=== PATIENT | female | born 1955 | race Caucasian/White ===

== ENCOUNTER → 2017-06-29 | Outpatient (CLI) | payer BC | LOC: MC.RAD 10:14 | DX: Z12.31 Encounter for screening mammogram for malignant neoplasm of breast (principal) ==

== ENCOUNTER 2017-08-27 10:00 | Outpatient (RCR) | payer BC | END 2017-08-30 12:49 | disposition home or self-care (01) | LOC: MKS.ESL.PT 10:00 | DX: M54.41 Lumbago with sciatica, right side (principal) ==

== ENCOUNTER → 2017-10-07 | Outpatient (CLI) | payer BC ==
[~2017-10-07] VITALS: Ht 162.6 cm; Wt 89.5 kg
[~2017-10-07] MED LIST: DIABETA 2.5MG2.5 MG PO; GLUCOPHAGE1000 MG PO; HYZAAR 25 MG-101 TAB PO; LEVOXYL0.125 MG PO; NATURE'S BLEND500 M1 PO; PRENATAL PO; VITAMIN D 50,1.25 MG PO
[2017-10-07 09:10] VITALS: BP 204/90; PULSE 93
[2017-10-07 10:15] VITALS: BP 191/86; PULSE 98
== END ==
LOC: COL.RAD 08:55
DX: M51.26 Other intervertebral disc displacement, lumbar region (principal)
CPT/HCPCS: J3301

== ENCOUNTER 2019-03-23 15:40 | Inpatient (IN) | payer MEDICARE, BC ==
[~2019-03-23] VITALS: Ht 162.6 cm; Wt 90.4 kg
--- NOTE | 2019-03-23 16:13 | NUR ---
Patient arrived to room, was independently up to restroom. Family is at bedside.
[2019-03-23 16:34] VITALS: BP 150/71; PULSE 83; TEMP 98.5
[2019-03-23] MEDS ORDERED: LEVAQUIN 750MG750 M1 PO (16:50)
[2019-03-23 18:48] LABS: CALCIUM 8.4 mg/dL (8.4-10.2); CREATININE, serum 0.41 (0.52-1.25)
[2019-03-23 18:52] LABS: POTASSIUM 2.9 mmol/L (3.4-5.0)
--- NOTE | 2019-03-23 19:28 | NUR ---
Pt admitted from home secondary to hyponatremia and increased weakness. Pt requires assistx1 fromtransfers from bed and stand-by assist with 4ww with all ambulation. IV inserted into Pt's right hand on first attempt with moderate difficulty and blood return noted. Pt is A&Ox4 and is able to make wants and needs known. Spouse is by bedside and is very supportive of Pt and participated in assessment. Pt has been up to void x3 since admission with yellow clear urine reported. Pt has call light within reach and beverages on the bedside tray. Pt denies pain at this time but reports that she has chronic pain in her back and at this time she is simply uncomfortable. Pillows placed under her knees and behind her head which Pt reports is helpful. Will continue to monitor.
[2019-03-23 20:00] VITALS: BP 127/51; PULSE 64; TEMP 97.6
[2019-03-23] MEDS ORDERED: COZAAR100 MG PO (20:03)
[2019-03-23] MEDS ORDERED: NORVASC 5MG5 MG/TAB PO (20:03)
[2019-03-23 22:04] LABS: MUCOUS Present /lpf; PH 6 (5-8); URINE APPEARANCE Cloudy; URINE BACTERIA Rare /hpf; URINE BILIRUBIN Negative (NEGATIVE); URINE BLOOD Negative (NEGATIVE); URINE COLOR Yellow; URINE GLUCOSE Negative (NEGATIVE); URINE KETONE 1+ (NEGATIVE); URINE LEUKOCYTE ESTERASE 1+ (NEGATIVE); URINE NITRATE Negative (NEGATIVE); URINE PROTEIN(semi-quant) Negative (NEGATIVE); URINE RBC 0-2 /hpf; URINE UROBILINOGEN Negative (NEGATIVE)
[2019-03-23 22:12] LABS: COLLECTION METHOD CLEAN CATCH
[2019-03-24] VITALS: BP 149/56; PULSE 75; TEMP 97.5
[2019-03-24 04:15] LABS: HEMOGLOBIN 13.3 g/dl (12.5-16.0); MEAN CELL VOLUME 82 fl (80.0-100.0); MEAN CORPUSCULAR HEMOGLOBIN 29 pg (27.0-31.0); MEAN CORPUSCULAR HGB CONC 35 g/dl (33.0-37.0); MEAN PLATELET VOLUME 9.4 fl (7.4-10.4); PLATELET COUNT 284 K/mm3 (130-400); RED BLOOD COUNT 4.62 M/mm3 (4.10-5.30); REDCELL DISTRIBUTION WIDTH-CV 12.4 % (11.5-14.5)
[2019-03-24 04:25] LABS: ALBUMIN 3.9 gm/dL (3.5-5.0); BILIRUBIN,TOTAL 0.3 mg/dL (0.0-1.0); CALCIUM 8.4 mg/dL (8.4-10.2); CREATININE, serum 0.42 (0.52-1.25); MAGNESIUM 1.6 mg/dL (1.6-2.3); POTASSIUM 3.3 mmol/L (3.4-5.0); TOTAL PROTEIN 6.7 gm/dL (6.4-8.2)
--- NOTE | 2019-03-24 04:33 | NUR ---
Patient up to the bathroom very frequently throughout the shift. Longest time between bathroom trips was about 2 hours, otherwise, it was every 20 minutes to an hour. Bladder scanned and no residual noted. Hat added to determine how much patient is voiding at a time. Potassium, magnesium, and normal saline has run this shift. Potassium replacement protocol in progress. Magnesium replaced and new level noted to be 1.6. AIDA Osman, ordered another 4mg of Magnesium IV. Potassium running a little slower d/t patient complaining of burning to left hand. UA, stool sample, and respiratory virus panel collected and sent to lab. Will continue to monitor.
[2019-03-24 04:52] VITALS: BP 131/55; PULSE 83; TEMP 97.5
[2019-03-24 04:57] LABS: BAND 8 % (0-10); LYMPHOCYTE 39 % (20.0-51.0); NEUTROPHILS 41 % (42.0-75.2); PLATELET ESTIMATE NORMAL (NORMAL)
[2019-03-24 07:19] VITALS: BP 124/51; PULSE 80; TEMP 98
--- NOTE | 2019-03-24 10:24 | NUR ---
Initial visit; Patient thanked [employer] for looking in on her and offering God's blessings.
--- NOTE | 2019-03-24 10:48 | NUR ---
Pt is resting peacefully in bed with her spouse at her side. Pt has been up to void aprox 4 times since 0700 and up for a BM twice. At aprox 0800 Pt reported no pain but now states that she has a headache of 8-9/10. Pt requires assist x1 for bed transfers and stand by assist with ambulation secondary to weakness and fall risk. Pt educated on orders for sputum culture and urine collection for sodium and states understanding. IV fluids running as ordered with no IV site complications and no s/s of distress noted at this time. Pt continues with edema+1 to right foot which is also cool to the touch with edema to her left foot resolved at this time. Call light within reach and bedside table with beverages at the bedside. Will continue to monitor
[2019-03-24 10:58] VITALS: BP 114/50; PULSE 78; TEMP 98.1
--- NOTE | 2019-03-24 13:43 | NUR ---
SW met with the patient to discuss discharge plan. The patient lives in [place] with her , Mark (ph#[phone]). She reports independence with ADLs and has two canes and a 4WW. The patient's PCP is Dr. Glen Real and she receives her medications at [facility]. She reports no difficulties obtaining her meds. The patient does not have advanced directives completed and she was not interested in completing them at this time. The patient plans to return home with her upon discharge. No additional needs at this time.
--- NOTE | 2019-03-24 16:21 | NUR ---
Pt resting peacefully in bed with spouse at her bedside. Pt continues to get up to restroom to void with light yellow urine noted in toilet before flushing. Pt brushed her teeth at the sink and then returned to bed. Pt strength has increased to where she is able to transfer herself off the bed with standby assist only. Pt resting in bed with call light within reach and bedside tray at the side of the bed with beverages available.
[2019-03-24 19:11] LABS: CALCIUM 8.5 mg/dL (8.4-10.2); CREATININE, serum 0.38 (0.52-1.25); POTASSIUM 5.7 mmol/L (3.4-5.0)
--- NOTE | 2019-03-24 20:15 | NUR ---
Resting in bed. Assessment complete. Lungs clear. Heart sounds normal. Bowels active x4. Pulses strong throughout. No edema noted at this time. Denies pain. Paiz on back present with aquaphor cream applied. INT to right wrist and left hand both flushed without complications. Denies other needs at this time. Call light in reach.
[2019-03-24 20:33] VITALS: BP 119/63; PULSE 84; TEMP 97.4
--- NOTE | 2019-03-24 21:05 | NUR ---
Patient request melatonin be increased to 6mg at bedtime. Okayd per Dr. Benitez.
[2019-03-24 22:53] VITALS: BP 134/67; PULSE 83; TEMP 98
--- NOTE | 2019-03-25 00:10 | NUR ---
Resting in bed. Denied needs at this time. Call light in reach.
--- NOTE | 2019-03-25 01:51 | NUR ---
Resting in bed asleep. Call light in reach.
[2019-03-25 04:49] VITALS: BP 127/51; PULSE 85; TEMP 97.3
--- NOTE | 2019-03-25 06:21 | NUR ---
Patient had uneventful night. Resting in bed this AM. Call light in reach.
--- NOTE | 2019-03-25 07:09 | NUR ---
Report given to KALEY Sherman
[2019-03-25 07:16] LABS: BASO % 0.2 % (0.0-2.0); GRAN # 4.6 (1.4-6.5); GRAN % 75.6 % (42.2-75.2); HEMOGLOBIN 12.5 g/dl (12.5-16.0); LYMPH % 15.9 % (20.0-51.0); MEAN CELL VOLUME 84 fl (80.0-100.0); MEAN CORPUSCULAR HEMOGLOBIN 29 pg (27.0-31.0); MEAN CORPUSCULAR HGB CONC 34 g/dl (33.0-37.0); MEAN PLATELET VOLUME 8.9 fl (7.4-10.4); MONO # 0.5 (0.1-0.6); MONO % 7.8 % (1.7-9.3); PLATELET COUNT 319 K/mm3 (130-400); RED BLOOD COUNT 4.35 M/mm3 (4.10-5.30); REDCELL DISTRIBUTION WIDTH-CV 12.7 % (11.5-14.5)
[2019-03-25 07:27] LABS: HEMATOCRIT 36.4 % (37.0-47.0)
[2019-03-25 07:30] LABS: CALCIUM 8.5 mg/dL (8.4-10.2); CREATININE, serum 0.44 (0.52-1.25); MAGNESIUM 1.8 mg/dL (1.6-2.3); POTASSIUM 3.7 mmol/L (3.4-5.0)
[2019-03-25 07:59] VITALS: BP 143/68; PULSE 92; TEMP 98.9
--- NOTE | 2019-03-25 09:50 | NUR ---
Pt awake and alert this morning, no C/O pain at this time, anbulated to restroom without assistance, steady on feet, shift assessments complete, left Pt call light in reach, bed in lowest position.
[2019-03-25 11:22] VITALS: BP 142/67; PULSE 100; TEMP 98.2
[2019-03-25 16:48] VITALS: BP 116/55; PULSE 100; TEMP 97.5
--- NOTE | 2019-03-25 18:00 | NUR ---
Pt resting in the room today, ambulatory with the use of a wheeled walker, stable while ambulating, no C/O pain during the day, Pt has a cough that is productive with white sputum produced, VS have remained stable.
--- NOTE | 2019-03-25 20:30 | NUR ---
Resting in bed. Assessment complete. Lungs clear. Heart sounds normal. Pulses present throughout. Bilateral lower leg edema +1. INT left hand and right wrist flushed at this time. Patient has vaughn on back from heating blanket-aquaphor on. Feet washed and lotion applied at patient request. Denies pain. Denies needs at this time. Call light in reach.
[2019-03-25 20:33] VITALS: BP 143/68; PULSE 98; TEMP 97.9
[2019-03-25 23:34] VITALS: BP 106/93; PULSE 88; TEMP 97.4
--- NOTE | 2019-03-26 | NUR ---
Resting in bed. Denies pain. Denies needs. call light in reach.
--- NOTE | 2019-03-26 02:27 | NUR ---
Patient request melatonin for inability to sleep. Provided to patient at this time. Denies other needs.
[2019-03-26 04:04] VITALS: BP 148/76; PULSE 88; TEMP 98
--- NOTE | 2019-03-26 06:26 | NUR ---
Patient had uneventful night. Resting in bed this AM.
--- NOTE | 2019-03-26 06:37 | NUR ---
Report given to KALEY Sherman
--- NOTE | 2019-03-26 08:22 | NUR ---
Pt awake and alert upon entry, talkative, no C/O pain at this time, shift assessments complete, left pt call light in reach, bed in lowest position.
[2019-03-26 08:55] VITALS: BP 124/87; PULSE 103; TEMP 97.6
[2019-03-26 10:46] LABS: BASO % 0.2 % (0.0-2.0); EOS % 0.2 % (0-4.0); GRAN # 4.1 (1.4-6.5); GRAN % 73.2 % (42.2-75.2); HEMATOCRIT 38.1 % (37.0-47.0); LYMPH % 17.9 % (20.0-51.0); MEAN CELL VOLUME 85 fl (80.0-100.0); MEAN CORPUSCULAR HEMOGLOBIN 29 pg (27.0-31.0); MEAN CORPUSCULAR HGB CONC 34 g/dl (33.0-37.0); MEAN PLATELET VOLUME 8.9 fl (7.4-10.4); MONO # 0.4 (0.1-0.6); PLATELET COUNT 354 K/mm3 (130-400); RED BLOOD COUNT 4.49 M/mm3 (4.10-5.30)
[2019-03-26 10:52] LABS: CALCIUM 9.1 mg/dL (8.4-10.2); CREATININE, serum 0.42 (0.52-1.25); MAGNESIUM 1.3 mg/dL (1.6-2.3)
[2019-03-26 13:07] VITALS: BP 115/59; PULSE 86; TEMP 98.2
[2019-03-26] MEDS ORDERED: LEVAQUIN 750MG750 M1 PO (14:21)
[2019-03-26] MEDS ORDERED: TAMIFLU 75MG75 MG PO (14:22)
== END 2019-03-26 16:43 | disposition home or self-care (01) | DRG 193 ==
LOC: MEDICAL 15:40
PROVIDERS: Physician Assistant; Student in an Organized Health Care Education/Training Program; ADMIT Hospitalist
DX: J10.00 Influenza due to other identified influenza virus with unspecified type of pneumonia (principal); J96.01 Acute respiratory failure with hypoxia; E87.1 Hypo-osmolality and hyponatremia; K52.1 Toxic gastroenteritis and colitis; E87.6 Hypokalemia; E83.42 Hypomagnesemia; E78.5 Hyperlipidemia, unspecified; I10 Essential (primary) hypertension; E03.9 Hypothyroidism, unspecified; E11.9 Type 2 diabetes mellitus without complications; E87.8 Other disorders of electrolyte and fluid balance, not elsewhere classified; T36.95XA Adverse effect of unspecified systemic antibiotic, initial encounter; T21.14XA Burn of first degree of lower back, initial encounter; Z86.711 Personal history of pulmonary embolism; Z79.84 Long term (current) use of oral hypoglycemic drugs
CPT/HCPCS: 99222-AI; 99233-AI; J1650; J1815; J1956; J3475; J3480; J7030

== ENCOUNTER → 2020-01-05 | Outpatient (CLI) | payer MEDICARE, BC ==
[~2020-01-05] MED LIST changes: +COZAAR100 MG PO; +LEVAQUIN 750MG750 M1 PO; +NORVASC 5MG5 MG/TAB PO; +TAMIFLU 75MG75 MG PO
== END ==
LOC: MC.RAD 14:15
DX: Z12.31 Encounter for screening mammogram for malignant neoplasm of breast (principal)

== ENCOUNTER → 2023-11-05 | Outpatient (CLI) | payer MEDICARE, BC | LOC: COL.RAD 12:54 | DX: N39.41 Urge incontinence (principal) ==